=== PATIENT | male | born 1950 | race Caucasian/White ===

== ENCOUNTER 2019-02-05 19:13 | Emergency (ER) | payer MEDICARE ==
[~2019-02-05] VITALS: Ht 180.3 cm; Wt 65.8 kg
[2019-02-05] MEDS ORDERED: MORPHABOND ER30 MG PO (20:06)
[2019-02-05] MEDS ORDERED: NIFEDIPINE ER30 M1 PO (20:07)
[2019-02-05] MEDS ORDERED: MORPHINE SULFAT15 MG PO (20:07)
== END 2019-02-06 00:26 | disposition home or self-care (01) ==
LOC: ED 19:13
DX: G62.9 Polyneuropathy, unspecified (principal); Z87.891 Personal history of nicotine dependence; Z79.891 Long term (current) use of opiate analgesic; Z79.899 Other long term (current) drug therapy
CPT/HCPCS: 70450; 73130; 99283